=== PATIENT | female | born 1945 | race Two or more races ===

== ENCOUNTER 2018-04-13 06:41 | Outpatient (CLI) | payer OTHER | END 2018-04-13 06:46 | disposition home or self-care (01) | LOC: LAB 06:41 | DX: I11.0 Hypertensive heart disease with heart failure (principal); N36.0 Urethral fistula; E78.2 Mixed hyperlipidemia; E04.0 Nontoxic diffuse goiter; N36.2 Urethral caruncle; E11.9 Type 2 diabetes mellitus without complications ==

== ENCOUNTER 2018-10-25 06:13 | Outpatient (CLI) | payer OTHER | END 2018-10-25 06:18 | disposition home or self-care (01) | LOC: LAB 06:13 | DX: N39.0 Urinary tract infection, site not specified (principal); B96.89 Other specified bacterial agents as the cause of diseases classified elsewhere; D53.8 Other specified nutritional anemias; E78.2 Mixed hyperlipidemia; E11.9 Type 2 diabetes mellitus without complications; N36.2 Urethral caruncle; Z12.11 Encounter for screening for malignant neoplasm of colon; E04.0 Nontoxic diffuse goiter ==

== ENCOUNTER 2018-10-25 07:34 | Outpatient (CLI) | payer OTHER | END 2018-10-25 07:39 | disposition home or self-care (01) | LOC: MAMO-SONO 07:34 | DX: Z12.31 Encounter for screening mammogram for malignant neoplasm of breast (principal); Z87.898 Personal history of other specified conditions ==

== ENCOUNTER 2019-05-30 07:10 | Outpatient (CLI) | payer OTHER | END 2019-05-30 07:17 | disposition home or self-care (01) | LOC: LAB 07:10 | DX: I11.0 Hypertensive heart disease with heart failure (principal); E04.8 Other specified nontoxic goiter; E11.9 Type 2 diabetes mellitus without complications; E78.2 Mixed hyperlipidemia; N39.0 Urinary tract infection, site not specified; N36.0 Urethral fistula; E55.9 Vitamin D deficiency, unspecified; D53.8 Other specified nutritional anemias ==